=== PATIENT | male | born 2000 | race Caucasian/White ===

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

== ENCOUNTER 2020-01-22 07:12 | Emergency (ER) | payer MEDICAID ==
[~2020-01-22] VITALS: Ht 182.9 cm; Wt 107.0 kg
[2020-01-22] MEDS ORDERED: LEVETIRACETAM 1000MG PREMIX 100 ML IV ONE (07:45)
[2020-01-22 08:02] LABS: BASOPHILS % 0.6 % (0.0-2.0); EOSINOPHILS % 1.3 % (0.0-5.0); HEMATOCRIT. 44.9 % (42.0-52.0); HEMOGLOBIN. 15.7 g/dL (14.0-18.0); MEAN CORPUSCULAR VOLUME 88.9 fL (80.0-94.0); MEAN PLATELET VOLUME 8.4 fl (7.4-10.4); MONOCYTES % 3.9 % (2.0-8.0); NEUTROPHILS % 77.2 % (40.0-76.0); PLATELET 256 x1000/uL (130-400); RED BLOOD CELL COUNT 5.05 mill/uL (4.7-6.1); RED CELL DISTRIBUTION WIDTH 13.6 % (11.6-14.6)
[2020-01-22 08:09] LABS: CHLORIDE 107 mEq/L (98-107)
[2020-01-22 08:13] LABS: ETHANOL BLOOD < 10 mg/dL
[2020-01-22] MEDS ORDERED: KETAMINE HCL 50 MG/ML 10ML IV ONE (09:00)
[2020-01-22] MEDS ORDERED: PROPOFOL 200MG/20ML VIAL IV ONE (09:00)
[2020-01-22] MEDS ORDERED: ONDANSETRON HCL 4MG/2ML INJ IV ONE (09:00)
[2020-01-22 10:00] VITALS: BP 142/85
== END 2020-01-22 11:08 | disposition home or self-care (01) ==
LOC: ER 07:27
DX: G40.909 Epilepsy, unspecified, not intractable, without status epilepticus (principal); S43.004A Unspecified dislocation of right shoulder joint, initial encounter; X58.XXXA Exposure to other specified factors, initial encounter; Y93.89 Activity, other specified; Y92.018 Other place in single-family (private) house as the place of occurrence of the external cause
CPT/HCPCS: 23650; 36415; 73030; 80053; 80320; 85025; 93005; 96361; 96374; 99152; 99285; J1953; J2405; J2704; J3490; G0480

== ENCOUNTER 2020-07-17 18:56 | Emergency (ER) | payer MEDICAID ==
[~2020-07-17] VITALS: Ht 177.8 cm; Wt 115.0 kg
[2020-07-17] MEDS ORDERED: KETOROLAC 30MG/ML VIAL IV STA (19:55)
[2020-07-17] MEDS ORDERED: KETAMINE HCL 50 MG/ML 10ML IV ONE (20:30)
[2020-07-17] MEDS ORDERED: PROPOFOL 200MG/20ML VIAL IV ONE (20:30)
[2020-07-17] MEDS ORDERED: MORPHINE SULFATE 4 MG/ML CPJ (NOT FOR IM USE) IV ONE (20:30)
[2020-07-17] MEDS ORDERED: IBUP-2029 MT (21:42)
[2020-07-17 23:06] VITALS: BP 128/78
== END 2020-07-17 23:10 | disposition home or self-care (01) ==
LOC: ER 18:56
DX: S43.004A Unspecified dislocation of right shoulder joint, initial encounter (principal); Z86.59 Personal history of other mental and behavioral disorders; X58.XXXA Exposure to other specified factors, initial encounter; Y93.89 Activity, other specified; Y92.89 Other specified places as the place of occurrence of the external cause; Y99.8 Other external cause status
CPT/HCPCS: 73030; 96374; 96375; 99284; J1885; J2270; J2704; J3490; Z7610; A4565